=== PATIENT | male | born 1955 | race Caucasian/White ===

== ENCOUNTER → 2024-02-16 13:02 | Outpatient (REF) | payer OTHER, SELFPAY | LOC: HWRAD 13:02 | PROVIDERS: ATTENDING PHYSICIAN Internal Medicine Pulmonary Disease; FAMILY PHYSICIAN Family Medicine | DX: Z87.891 Personal history of nicotine dependence (principal) | CPT/HCPCS: 71271 ==

== ENCOUNTER → 2024-03-10 09:52 | Outpatient (REF) | payer OTHER, SELFPAY | LOC: PET 09:52 | PROVIDERS: ATTENDING PHYSICIAN Internal Medicine Pulmonary Disease | DX: R91.1 Solitary pulmonary nodule (principal) | CPT/HCPCS: 78815; A9552 ==